=== PATIENT | female | born 1995 | race African-American/Black ===

== ENCOUNTER 2019-05-17 08:57 | Emergency (ER) | payer OTHER ==
[~2019-05-17] VITALS: Ht 170.2 cm; Wt 77.1 kg
[2019-05-17 09:03] VITALS: BP 127/86
== END 2019-05-17 09:33 | disposition home or self-care (01) ==
LOC: ER 09:06
DX: J10.1 Influenza due to other identified influenza virus with other respiratory manifestations (principal)

== ENCOUNTER 2020-12-29 12:20 | Emergency (ER) | payer OTHER ==
[~2020-12-29] VITALS: Ht 170.2 cm; Wt 91.2 kg
[2020-12-29 12:27] VITALS: BP 128/92
[2020-12-29] MEDS ORDERED: LIDOCAINE/PRILOCAINE (5GM) 5 GM TUBE TP ONE (12:30)
--- NOTE | 2020-12-29 12:31 | NUR ---
The patient bibs for c/o left earlobe pain from the ear piercing x 1 week. Rates pain 7/10. The patient denies change in hearing. Will continue to monitor the patient.
[2020-12-29] MEDS ORDERED: LIDOCAINE /MPF 1% VIAL 5 ML VIAL IJ ONE (13:00)
[2020-12-29] MEDS ORDERED: LIDOCAINE/PRILOCAINE 1 EA KIT TP ONE (13:00)
--- NOTE | 2020-12-29 13:05 | NUR ---
Patient discharged to home in stable condition. Written and verbal after care instructions given. Patient verbalizes understanding of instruction.
== END 2020-12-29 13:06 | disposition home or self-care (01) ==
LOC: ER 12:20
DX: S00.452A Superficial foreign body of left ear, initial encounter (principal); W45.8XXA Other foreign body or object entering through skin, initial encounter; Y93.89 Activity, other specified; Y92.89 Other specified places as the place of occurrence of the external cause; Y99.8 Other external cause status
CPT/HCPCS: 10120; 99285; A6403; A6407

== ENCOUNTER 2022-07-18 17:10 | Emergency (ER) | payer OTHER ==
[~2022-07-18] VITALS: Ht 167.6 cm; Wt 83.9 kg
[2022-07-18 17:22] VITALS: BP 127/78
[2022-07-18] MEDS ORDERED: AMOX500T2 PO (17:38)
[2022-07-18] MEDS ORDERED: AMOXICILLIN TRIHYDRATE 250 MG CAPSULE ONE (17:45)
[2022-07-18] MEDS ORDERED: IBUPROFEN 600 MG TABLET ONE (17:45)
[2022-07-18] MEDS ORDERED: AMOXICILLIN TRIHYDRATE 500 MG CAPSULE PO ONE (18:00)
[2022-07-18] MEDS ORDERED: IBUPROFEN 600 MG TABLET PO ONE (18:00)
== END 2022-07-18 17:50 | disposition home or self-care (01) ==
LOC: ER 17:15
DX: J02.0 Streptococcal pharyngitis (principal); Z60.2 Problems related to living alone